=== PATIENT | female | born 1960 | race Two or more races ===

== ENCOUNTER 2025-07-03 11:00 | Day surgery (SDC) | payer OTHER ==
[2025-06-23 13:58] VITALS: BP 139/77
[2025-07-03] MEDS ORDERED: CEFOXITIN SODIUM 2,000 MG VIAL IV ONE (11:30)
[2025-07-03] MEDS ORDERED: BUPIVACAINE HCL/MPF 0.5% 30ML VIAL ONE (13:51)
[2025-07-03] MEDS ORDERED: LIDOCAINE HCL 1%/EPINEPHRINE 20ML VIAL IJ ONE (13:51)
[2025-07-03] MEDS ORDERED: CELECOXIB200 MG PO (16:58)
[2025-07-03] MEDS ORDERED: PERCOCET 5-3251 EACH PO (16:58)
[2025-07-03] MEDS ORDERED: PROTONIX40 MG PO (16:58)
[2025-07-03] MEDS ORDERED: NEURONTIN300 MG PO (16:59)
== END 2025-07-03 19:00 | disposition home or self-care (01) ==
LOC: CIR.AMB 11:00
PROVIDERS: ATTEND Surgery
DX: K81.1 Chronic cholecystitis (principal)